=== PATIENT | female | born 1965 | race Caucasian/White ===

== ENCOUNTER 2016-06-20 13:14 | Emergency (ER) | payer OTHER | END 2016-06-20 14:03 | disposition home or self-care (01) | LOC: ER 13:14 | DX: R11.0 Nausea (principal); T45.4X5A Adverse effect of iron and its compounds, initial encounter; D64.9 Anemia, unspecified; R73.03 Prediabetes; F41.9 Anxiety disorder, unspecified; Z79.899 Other long term (current) drug therapy ==